=== PATIENT | male | born 1980 | race Caucasian/White ===

== ENCOUNTER 2024-03-29 15:04 | Emergency (ER) | payer OTHER, SELFPAY ==
[2024-03-29 15:10] VITALS: BP 129/83; PULSE 96; RESP 20; TEMP 37; O2SAT 100
[2024-03-29 15:53] LABS: EDUAAPPEAR Clear; EDUABILI Negative (Negative); EDUABLOOD 2+ (Negative); EDUACOLOR1 Yellow; EDUAGLUCOSE Negative (Negative); EDUAKETONE Negative (Negative); EDUALEUKO Negative (Negative); EDUANITRATE Negative (Negative); EDUAPH 5.5; EDUAPROTEIN Negative (Negative); EDUAUROBILI 0.2
--- NOTE | 2024-03-29 16:09 | ED_ITS ---
HPI - Male Genitourinary General Chief complaint: Urogenital-Male Stated complaint: Urinary Problem Time Seen by Provider: 03/29/24 16:00 Source: patient, RN notes reviewed and old records reviewed Mode of arrival: ambulatory Limitations: no limitations History of Present Illness HPI Narrative: 43 year old male who [facility] with complaints of bladder pain at the top of his bladder region for about 1 week duration with blood noted in his urine starting today. Patient reports he had similar episode in August with blood in urine noted for a week and was treated with antibiotic and he states symptoms resolved. Patient reports that he wants to have STD testing done also today though not having any symptoms, has had unprotected intercourse. Patient reports no history of kidney stones. Patient reports that he started Tirzepatide about 6 weeks ago for weight loss. MD Complaint: possible STD exposure and other (blood in urine) Onset (ago): week(s) (1) Duration: other (blood noted in urine today) Severity: mild Related Data Home Medications ?Medication ?Instructions ?Recorded ?Confirmed ?Last Taken ?Type amlodipine 10 mg tablet mg 03/29/24 Unknown History tirzepatide (weight loss) 03/29/24 Unknown History Allergies Allergy/AdvReac Type Severity Reaction Status Date / Time No Known Allergies Allergy Verified 03/29/24 15:14 Review of Systems Review of Systems: CONSTITUTIONAL: Denies fever, chills, or sweats. CARDIOVASCULAR: Denies chest pain, palpitations, or edema. RESPIRATORY: Denies cough or dyspnea. GASTROINTESTINAL: Denies abdominal pain, nausea, vomiting, or diarrhea. GENITOURINARY: Reports no dysuria,discharge, frequency, or urgency, reports bladder pain. Denies flank pain positive for hematuria. SKIN: Denies rash or itching. MUSCULOSKELETAL: Denies back pain or myalgia. Denies CVA tenderness NEUROLOGIC: Denies headache All systems reviewed & are unremarkable except as noted in HPI and below PMFSH Past Medical History Medical History (Updated 03/30/24 @ 07:51 by Marely Thomas NP) Obesity (BMI 30.0-34.9) UTI (urinary tract infection) Hypertension Social History Social History (Updated 03/29/24 @ 20:21 by Marely Thomas NP) Smoking status: Never smoker Alcohol intake: current Alcohol use details: social Substance use type: does not use Gender identity (if verbalized by the patient): Male Comments At time of signature, agree with nursing past medical, surgical, social and family history. There is no relevant family history pertinent to the presenting complaint Exam Narrative: GENERAL: Well-appearing, well-nourished, and in no acute distress. HEAD: Normocephalic, atraumatic. NECK: Supple.no lymphadenopathy CHEST: Clear to auscultation. No respiratory distress.SAO2 100% on room air HEART: Regular rate and rhythm. No murmur heard. Normal peripheral pulses. ABDOMEN: Soft, nontender, nondistended, normal active bowel sounds. No CVA tenderness reports discomfort to top of bladder area and blood noted in urine today also, no penis discharge or any pain to testicles EXTREMITIES: Normal range of motion. No edema. SKIN: Warm, dry, no rash. NEURO: No focal deficits. Alert and oriented x3. Course Course Emergency Course: Patient is aware of diagnosis, understands and agrees to treatment plan.? Anticipatory guidance given.? Patient agrees to follow-up as directed and is aware of reasons to seek care at the emergency department.Instructed to contact PCP for further diagnostic studies or referral to urology. Portions of this record may have been created with voice recognition software Level of Care: Express Care Visit Vital Signs Vital signs: Vital Signs Temperature 37.0 C 03/29/24 15:10 Pulse Rate 96 03/29/24 15:10 Respiratory Rate 20 03/29/24 15:10 Blood Pressure 129/83 03/29/24 15:10 Pulse Oximetry 100 03/29/24 15:10 Oxygen Delivery Room Air 03/29/24 15:10 Temperature 37.0 C 03/29/24 15:10 Pulse Rate 96 03/29/24 15:10 Respiratory Rate 20 03/29/24 15:10 Blood Pressure 129/83 03/29/24 15:10 Pulse Oximetry 100 03/29/24 15:10 Oxygen Delivery Room Air 03/29/24 15:10 MDM - Male Genitourinary Differential Diagnosis Differential diagnosis: Likely urinary tract infection, urethritis and other (hematuria, testing for STD) Medical Records Attestation: I reviewed the patient's medical records. Lab Data Attestation: I reviewed the patient's lab results. Lab results narrative: urine dip negative except for 2+ blood, urine sent for STD's with GC negative, Chlamydia negative, and trichomonas negative Labs: Lab Results 03/29/24 03/29/24 Range/Units 15:36 15:49 POC Urine Color Yellow POC Urine Clarity Clear POC Urine pH 5.5 POC Ur Specif [place] 1.030 POC Urine Protein Negative (Negative) POC Ur Glucose (UA) Negative (Negative) POC Urine Ketones Negative (Negative) POC Urine Blood 2+ (Negative) POC Urine Nitrite Negative (Negative) POC Urine Bilirubin Negative (Negative) POC Urine Urobilinogen 0.2 POC U Leukocyte Esteras Negative (Negative) C. trachomatis (PCR) Not detected (NOT DETECTE) N. gonorrhoeae (PCR) Not detected (NOT DETECTE) T. vaginalis (PCR) Not detected (NOT DETECTE) reviewed Critical Care Time Critical Care Time Critical Care Time: No Discharge Plan Discharge Clinical Impression: Screen for STD (sexually transmitted disease) Blood in urine Qualifiers: Hematuria type: other microscopic Qualified Code(s): R31.29 - Other microscopic hematuria Patient Disposition: Home, Self-Care Condition: Stable Instructions: Antibiotic Form, Hematuria (ED) Additional Instructions: Increase fluids especially cranberry juice and water Avoid caffeine and carbonated beverages Antibiotic as directed Tylenol/ibuprofen for pain or fever Follow-up with her primary care provider if further problems or concerns Recheck if you have fever over 101, nausea and vomiting. You will be notified of STD test results and if treatment needed If your symptoms persist, change or worsen significantly before you can contact your personal physician then please, without delay, go to the emergency department for further evaluation. Follow-up with PCP in 7-10 days or sooner if needed Follow up with PCP soon in regards to your blood pressure which is elevated above threshold for referral. Blood pressure above 120/80 may indicate pre- hypertension. 129/83 If you feel you need more comprehensive testing for STDs you can go to nearest health department or [facility] Patient Language: Ukrainian Prescriptions: New ciprofloxacin HCl 500 mg tablet 500 mg PO Q12H Qty: 14 0RF Rx Instructions: make sure you drink plenty of fluids No Action amlodipine 10 mg tablet tirzepatide (weight loss) Follow-up/Referrals: PHYSICIAN NOT ON STAFF,NONSTAFF [Primary Care Provider] - Time of Disposition: 16:20 Quality Tahir Coma Scale Eyes: Open Verbal: Oriented and Alert Motor: Follows Commands Tahir Coma Total Score: 15
--- OUTSIDE RECORDS SUMMARY | 2024-03-29 17:50 | XMS_ITS | Clinical Summary ---
Author Organization [facility] [id number] [facility] Address [address] [place] [address] Care Team Providers Care Legend Maker Name Role Phone Unavailable Primary Care Provider Unavailabl e Allergies No known active allergies Medications sertraline (ZOLOFT) 100 mg tablet Take 100 mg by mouth daily. 4 Active amLODIPine (NORVASC) 10 mg tablet Take 1 Tablet (10 mg) by mouth daily. 90 Tablet 3 5 Active metoprolol succinate (TOPROL XL) 25 mg Extended Release 24 hour tablet Take 1 Tablet (25 mg) by mouth daily. 90 Tablet 3 4 03/03/19 25 Discontinued Active Problems Patient Care Coordination No te Formatting of this note migh t be different from the original. Twister Frame Tender-Dr Vilchis [facility] [address] [facility] [address] [place] [address] Problem Noted Date Diagnosed Date Chest pain due to myocardial ischemia 10/15/2023 Essential hypertension 10/15/2023 Encounters Date Type Department Care Team Description 03/23/2024 External Device Data ST[facility] ABSTRACTION Provider, Abstract 03/22/2024 Telephone [facility] - [address] [place] [id number] Marisa Maldonado APRN-SUPERVISOR [employer]OLD [employer] BP update 03/04/2024 External Device Data STL ABSTRACTION Provider, Abstract 03/03/2024 10:30 AM CUSTODY OFFICER Office Visit [facility] - [address] [facility] [address] [address] [facility] [address] [place] [phone] Marisa Maldonado DESIGN STUDIO CONSULTANT-SUPERVISOR [employer]CTION Other chest pain (Primary Dx); Essential (primary) hypertension 02/24/2024 External Device Data STL ABSTRACTION Provider, Abstract from Last 3 Months Family History Medical History Relation Name Comments Heart Attack Father Heart Surgery Father Heart Attack Maternal Grandfather Heart Attack Paternal Grandfather Relation Name Status Comments Father age 47 quadrupl e bipass Maternal Grandfather Paternal Grandfather Social History Tobacco Use Types Packs/Day Years Used Date Smoking Tobacco: Former Cigarettes Passive Smoke Exposure: Past Smokeless Tobacco: Never Alcohol Use Standard Drinks/Week Comments Yes 0 (1 standard drink = 0.6 oz pur e alcohol) 3 days per week Sex and Gender Information Value Date Recorded Sex Assigned at Not on file Legal Sex Male 11:26 AM CDT Gender Identity Not on file Sexual Orientation Not on file Last Filed Vital Signs Vital Sign Reading Time Taken Comments Blood Pressure 144/88 03/03/2024 10:26 AM CUSTODY OFFICER Pulse 72 03/03/2024 10:26 AM CUSTODY OFFICER Temperature - - Respiratory Rate 15 11/26/2023 11:25 AM CDT Oxygen Saturation 100% 11/26/2023 11:25 AM CDT Inhaled Oxygen Concentration - - Weight 120.7 kg (266 lb) 03/03/2024 10:26 AM CUSTODY OFFICER Height 188 cm (6' 2 ) 03/03/2024 10:26 AM CUSTODY OFFICER Body Mass Index 34.15 03/03/2024 10:26 AM CUSTODY OFFICER Plan of Treatment Upcoming Encounters Date Type Department Care Team (Late st Contact Info) Description 03/08/2025 10:30 AM CUSTODY OFFICER Office Visit [facility] - [address] [facility] [address] [address] [facility] [address] [place] [address] [place] [address] [place] [address] Health Maintenance Due Date Last Done Comments Pre-Diabetes and Diabetes Screening 1980 DTAP/TDAP/TD VACCINES (1 - Tdap) 08/09/1999 HEPATITIS B VACCINES (1 of 3 - 19+ 3-dose series) 08/09/1999 INFLUENZA VACCINE (#1) 2023 Preventative Visit- Commercial 02/11/2024 HPV VACCINES Aged Out No longer eligi ble based on patient's age to complete this topic Insurance [facility] OPEN ACCESS HMO
[2024-03-29 19:52] LABS: Trichomonas Vag PCR NOT DETECTED (NOT DETECTE)
[2024-03-29 22:21] LABS: Chlamydia trachomatis NOT DETECTED (NOT DETECTE); Neisseria gonorrhoeae PCR NOT DETECTED (NOT DETECTE)
== END 2024-03-29 16:26 | disposition home or self-care (01) ==
PROVIDERS: Emergency Provider Registered Nurse
DX: Z11.3 Encounter for screening for infections with a predominantly sexual mode of transmission (principal); R31.29 Other microscopic hematuria; I10 Essential (primary) hypertension; E66.9 Obesity, unspecified
CPT/HCPCS: 81003; 87086; 87491; 87591; 87661; 99203; G0463